=== PATIENT | male | born 1940 | race Caucasian/White ===

== ENCOUNTER → 2023-08-26 11:27 | Outpatient (REF) | payer OTHER, SELFPAY | LOC: HWRAD 11:27 | PROVIDERS: ATTENDING PHYSICIAN Internal Medicine Geriatric Medicine | DX: U07.1 COVID-19 (principal); R05.2 Subacute cough | CPT/HCPCS: 71250 ==

== ENCOUNTER → 2023-12-22 11:17 | Outpatient (REF) | payer OTHER, SELFPAY | LOC: DHCBC/DCA 11:17 | PROVIDERS: ATTENDING PHYSICIAN Internal Medicine Cardiovascular Disease; FAMILY PHYSICIAN Internal Medicine Geriatric Medicine | DX: I48.0 Paroxysmal atrial fibrillation (principal); R06.02 Shortness of breath; I10 Essential (primary) hypertension; I70.0 Atherosclerosis of aorta | CPT/HCPCS: 71046; 78452; 93017; A9500; J2785 ==

== ENCOUNTER → 2023-12-30 13:53 | Outpatient (REF) | payer OTHER, SELFPAY | LOC: HWRCS 13:53 | PROVIDERS: ATTENDING PHYSICIAN Internal Medicine Cardiovascular Disease; FAMILY PHYSICIAN Internal Medicine Geriatric Medicine | DX: I48.0 Paroxysmal atrial fibrillation (principal); R06.02 Shortness of breath; I10 Essential (primary) hypertension; I70.0 Atherosclerosis of aorta | CPT/HCPCS: 93306 ==

== ENCOUNTER → 2024-01-04 10:30 | Outpatient (REF) | payer OTHER, SELFPAY | LOC: MRI 3T 10:30 | PROVIDERS: ATTENDING PHYSICIAN Psychiatry & Neurology Neurology; FAMILY PHYSICIAN Internal Medicine Geriatric Medicine | DX: I63.89 Other cerebral infarction (principal) | CPT/HCPCS: 70544; 70547; 70551 ==

== ENCOUNTER 2024-01-20 12:39 | Emergency (ER) | payer OTHER, SELFPAY ==
[2024-01-20 12:40] VITALS: BP 137/73
--- NOTE | 2024-01-20 14:56 | ED.GENMED ---
History of Present Illness
<CB Bradshaw - Last Filed: 01/20/24 16:29>
General
Chief Complaint: Breathing Problem
Source: patient
Exam Limitations: none
Time Seen by Provider: 01/20/24 14:41
Nursing documentation reviewed up to this point in time: agreed with
History of Present Illness
History of Present Illness:
Patient is an 83-year-old male with history of A-fib hypertension hyperlipidemia stroke recent diagnosis of brain aneurysms(scheduled to see [place] [facility] in February) presents to the ER for evaluation of shortness of breath. Patient has been short
of breath for the past 6 to 8 weeks. He denies any lower extremity swelling. Denies any chest pain shortness of breath recent illness fever chills.
Patient denies any abdominal pain. reports that patient recently had blood in his urine and was seen by urologist on Wednesday urine was found to be negative for infection. She reports urine seems to be getting a little darker again.
Patient is followed by Dr. Osorio who did some studies for shortness of breath and did not find any cause.
Echo was done December 29 which showed normal LV size LV ejection fraction 55-60% trace aortic regurg trace tricuspid regurg no change from 2021
Past History
<CB Bradshaw - Last Filed: 01/20/24 16:29>
Past History
ED Past Medical History: Arrthythmia (Afib/Flutter), Cancer (skin cancer), CVA (ICH in 2017 and ICH in 02/2019 after fall, left sided weakness), HTN, Hypercholesterolemia, NIDDM and Other (ZACHARY, Restless leg syndrome. UTi, Vertigo, Skin CA, )
ED Past Surgical History: Appendectomy, Bowel resection (for Pre Cancerious) and Other (bowel resection for polyp)
Social History
Tobacco: Former smoker
Alcohol: None
Drug: None
Personal:
Living: with family
Employment: Retired
Family History
Family History: Other (Reviewed and Noncontributory)
Review of Systems
<CB Bradshaw - Last Filed: 01/20/24 16:29>
Review of Systems
Allergies reviewed?: Yes
All Other Systems: ROS reviewed and negative except as documented in HPI and ROS
Constitutional: Reports no symptoms; Denies fever, fatigue or chills
EENT: Reports no symptoms
Respiratory: Reports trouble breathing
Cardiac: Reports no symptoms
ABD/GI: Reports no symptoms
: Reports no symptoms
Musculoskeletal: Reports no symptoms
Skin: Reports no symptoms
Neurological: Reports no symptoms
Psychiatric: Reports no symptoms
Phy Exam
<CB Bradshaw - Last Filed: 01/20/24 16:29>
General Physical Exam
General Presentation: no apparent distress
General age: appears stated age
General Skin: warm and dry
General Habitus: normal
General Mental: alert
General Hydration: appears well hydrated
Cardiovascular Exam
Cardiovascular Exam: regular rate/rhythm, no murmur and normal peripheral pulses
Pulmonary Exam
Pulmonary Exam: lungs clear and no respiratory distress
Neurological Exam
Neurological Exam: alert and oriented x3
Musculoskeletal Exam
Musculoskeletal Exam: full ROM
Skin Exam
Skin Exam: normal color and warm/dry
Psychiatric Exam
Psychiatric Exam: normal mood/affect
Scores
<CB Bradshaw - Last Filed: 01/20/24 16:29>
Heart Failure Risk
Heart Failure Risk Score: Not Applicable
Course
<CB Bradshaw - Last Filed: 01/20/24 16:29>
Orders/Labs/Results
Orders:
Orders
01/20/24 12:44
Electrocardiogram (*1) Urgent
Reason for Study: Shortness of Breath
EKG- Treatment ONCE
01/20/24 14:43
Complete Blood Count/With Diff Urgent
Comprehensive Metabolic Panel Urgent
NT-proBNP Urgent
Comment: ADD ON
PTT Urgent
Prothrombin Time Urgent
Troponin I Urgent
01/20/24 14:57
CT Chest Pe Study Urgent
Comment:
Reason For Exam: sob hx of afib
01/20/24 14:58
Add On- LAB Urgent
Tests Added?: cardiac BNP
01/20/24 18:11
Add On- LAB Urgent
Tests Added?: tsh free t4, lyme progressive
Abnormal Lab Results
01/20/24
14:43
RBC 4.28 L 10^6/uL
(4.70-6.10)
MCV 95.3 H fL
(80.0-94.0)
MCH 32.2 H pg
(27.0-31.0)
Monocytes % 9.9 H %
(1.7-9.3)
PT 16.5 H Sec
(11.4-14.6)
APTT 44.0 H Sec
(23.4-35.0)
BUN 24 H mg/dl
(9-20)
Glucose 122 H mg/dl
(70-99)
01/20/24 14:43
01/20/24 14:43
Vital Signs
Initial and Last Documented VS:
Initial Vital Signs
Temp Pulse Resp BP Pulse Ox
97.8 F 86 20 137/73 99
01/20/24 12:40 01/20/24 12:40 01/20/24 12:40 01/20/24 12:40 01/20/24 12:40
Last Documented Vital Signs
Temp Pulse Resp BP Pulse Ox
97.8 F 77 21 126/66 95
01/20/24 12:40 01/20/24 17:30 01/20/24 17:30 01/20/24 16:00 01/20/24 16:45
<Kingsley Romero Jr., PA-C - Last Filed: 01/20/24 18:14>
Orders/Labs/Results
Orders:
Orders
01/20/24 12:44
Electrocardiogram (*1) Urgent
Reason for Study: Shortness of Breath
EKG- Treatment ONCE
01/20/24 14:43
Complete Blood Count/With Diff Urgent
Comprehensive Metabolic Panel Urgent
NT-proBNP Urgent
Comment: ADD ON
PTT Urgent
Prothrombin Time Urgent
Troponin I Urgent
01/20/24 14:57
CT Chest Pe Study Urgent
Comment:
Reason For Exam: sob hx of afib
01/20/24 14:58
Add On- LAB Urgent
Tests Added?: cardiac BNP
01/20/24 18:11
Add On- LAB Urgent
Tests Added?: tsh free t4, lyme progressive
Abnormal Lab Results
01/20/24
14:43
RBC 4.28 L 10^6/uL
(4.70-6.10)
MCV 95.3 H fL
(80.0-94.0)
MCH 32.2 H pg
(27.0-31.0)
Monocytes % 9.9 H %
(1.7-9.3)
PT 16.5 H Sec
(11.4-14.6)
APTT 44.0 H Sec
(23.4-35.0)
BUN 24 H mg/dl
(9-20)
Glucose 122 H mg/dl
(70-99)
01/20/24 14:43
01/20/24 14:43
Vital Signs
Initial and Last Documented VS:
Initial Vital Signs
Temp Pulse Resp BP Pulse Ox
97.8 F 86 20 137/73 99
01/20/24 12:40 01/20/24 12:40 01/20/24 12:40 01/20/24 12:40 01/20/24 12:40
Last Documented Vital Signs
Temp Pulse Resp BP Pulse Ox
97.8 F 77 21 126/66 95
01/20/24 12:40 01/20/24 17:30 01/20/24 17:30 01/20/24 16:00 01/20/24 16:45
<CB Bradshaw - Last Filed: 01/20/24 16:29>
MDM/Problems Addressed
MDM/Problems Addressed:
Patient is an 83-year-old male with history of A-fib hypertension hyperlipidemia stroke presents to the ER for evaluation of shortness of breath. Patient has a breath for the past 6 to 8 weeks. He denies any chest pain. Shortness of breath seems
to be worse with exertion but also at rest. He denies any recent illness fever chills.
Patient is afebrile not hypoxic normal white count stable hemoglobin 13.8. BUN minimally elevated creatinine normal. Troponin normal.
Patient with negative cardiac troponin, no less than 20 cardiac BNP.
Patient ambulated here with a cane however was very short of breath pulse ox 92%. CAT scan pending at this time however patient may require admission for shortness of breath. 1630:Care of pt at this time transferred To Ed TING Romero.
<Kingsley oRmero Jr., PA-C - Last Filed: 01/20/24 18:14>
MDM/Problems Addressed
MDM/Problems Addressed:
Patient is an 83-year-old male with history of A-fib hypertension hyperlipidemia stroke presents to the ER for evaluation of shortness of breath. Patient has a breath for the past 6 to 8 weeks. He denies any chest pain. Shortness of breath seems
to be worse with exertion but also at rest. He denies any recent illness fever chills.
Patient is afebrile not hypoxic normal white count stable hemoglobin 13.8. BUN minimally elevated creatinine normal. Troponin normal.
Patient with negative cardiac troponin, no less than 20 cardiac BNP.
Patient ambulated here with a cane however was very short of breath pulse ox 92%. CAT scan pending at this time however patient may require admission for shortness of breath. 1630:Care of pt at this time transferred To Ed Nick, PAC.
Ed Romero//patient was reassessed CT scan without emergent findings labs unremarkable. Patient claims that he was feeling better here he was walked did not show significant shortness of breath when walking was able to ambulate at least 20 to 30
feet without difficulty. Patient did not require any assistance. Was offered to him considering significant symptoms to be admitted he opted to go home strict return precautions were discussed and he will follow-up closely with his quality eng
and primary care doctor.
<CB Bradshaw - Last Filed: 01/20/24 16:29>
*Pulse Oximetry
Patient hypoxic: no
*Critical Care Note
Total Time (30-74mins, 75-104mins- exclusive of procedures): Not Applicable
Data Reviewed
Review of Other/Old Records Reveals: Other (Echo from December 30, 2023)
ED Attending Note
<CB Bradshaw - Last Filed: 01/20/24 16:29>
-
Portions of this chart may have been created with voice recognition software.� Occasional wrong word or��sound alike� substitutions may have occurred due to the inherent limitations of voice recognition software.
Discharge Plan
Departure
Patient Disposition: Home (Routine Discharge)
Date of Disposition: 01/20/24
Time of Disposition: 18:11
Patient with high blood pressure during this ER visit?: No
Condition: Good
Covid-19: Not Applicable
Discharge Problem:
Fatigue, Shortness of breath
Instructions: Shortness of Breath (Dyspnea) (DC)
Prescriptions:
No Action
cholecalciferol (vitamin D3) 1,000 UNITS tablet
2,000 units PO DAILY
multivitamin with folic acid [Tab-A-Mushtaq] 1 TABLET tablet
1 tab PO DAILY
atorvastatin 20 MG tablet
20 mg PO HS
clonazepam 1 MG tablet
1 mg PO HS
Patient Comments:
01/15/2021: last filled 11/24/20, 90 tabs for 90 days from [facility]
hydrochlorothiazide 25 MG tablet
25 mg PO DAILY
ipratropium bromide 1 SPRAY spray,non-aerosol
2 spray intranasal TID
fluoxetine 20 MG capsule
20 mg PO DAILY
coenzyme [id number] 1 CAP capsule
1 cap PO BID
melatonin 5 MG tablet
10 mg PO HS
dabigatran etexilate [Pradaxa] 150 MG capsule
150 mg PO BID
cyanocobalamin (vitamin B-12) 1,000 MCG tablet
1,000 mcg PO DAILY Qty: 30 0RF
amlodipine 10 MG tablet
10 mg PO DAILY Qty: 30 0RF
finasteride 5 MG tablet
5 mg PO DAILY Qty: 30 0RF
Referrals:
Robin Telles MD [Family Provider] -
Grayson Osorio MD [Active] - Follow up in 5-7 days
Activity Restrictions/Additional Instructions:
You came to emergency department today with concerns of shortness of breath. Here you had a normal chest CT normal labs unchanged EKG. This is reassuring please follow closely with as an outpatient. Return to the emergency department for any
worsening, new or concerning symptoms.
Interventions
Interventions:
*Risk Screen - Suicide Last Done: 01/20/24 15:24
*General Assessment Last Done: 01/20/24 12:40
*Neglect/Abuse Screening Last Done: 01/20/24 15:24
ED- Fall Risk Assessment Last Done: 01/20/24 15:23
*ED COVID-19 Vaccine History Last Done: 01/20/24 12:40
ED- Cardiac Assessment Last Done: 01/20/24 15:23
ED- Pulmonary Assessment Last Done: 01/20/24 15:23
Discharge Date and Time
Print Language: IVORIAN
[2024-01-20 14:58] LABS: % Basophils 0.5 % (0-2); % Eosinophils 1.6 % (0-6); % Immature Granulocytes 0.4 % (0-0.5); % Lymphocytes 45.1 % (20.5-51.1); % Monocytes 9.9 % (1.7-9.3); % Neutrophils 42.5 % (42.2-75.2); Absolute Eosinophils 0.1 10^3/uL (0-0.7); Absolute Lymphocytes 2.5 10^3/uL (1.2-3.4); Absolute Monocytes 0.5 10^3/uL (0.1-0.6); Absolute Neutrophils 2.3 10^3/uL (1.4-6.5); Hematocrit 40.8 % (39.0-52.0); Hemoglobin 13.8 g/dL (13.0-18.0); Mean Corp Hgb Conc. 33.8 g/dL (33.0-37.0); Mean Corpuscular Hgb 32.2 pg (27.0-31.0); Mean Corpuscular Volume 95.3 fL (80.0-94.0); Mean Platelet Volume 9.9 fL (7.4-10.4); Nucleated Red Blood Cells % 0 % (-); Platelet Count 220 10^3/uL (130-400); Red Blood Cell Count 4.28 10^6/uL (4.70-6.10); Red Cell Dist. Width 12.3 % (11.5-14.5); White Blood Cell Count 5.5 10^3/uL (4.8-10.8)
[2024-01-20 15:00] VITALS: BP 123/69
[2024-01-20 15:03] LABS: INR 1.32; PT 16.5 Sec (11.4-14.6)
[2024-01-20 15:12] LABS: ALT (SGPT) 35 U/L (0-50); AST (SGOT) 30 U/L (17-59); Albumin 4.4 g/dl (3.5-5.0); Alkaline Phosphatase 61 U/L (38-126); Blood Urea Nitrogen 24 mg/dl (9-20); Calcium 9.6 mg/dl (8.4-10.2); Carbon Dioxide 25 mmol/L (22-30); Chloride 102 mmol/L (98-107); Glucose 122 mg/dl (70-99); Potassium 4.4 mmol/L (3.5-5.1); Sodium 137 mmol/L (135-145); Total Bilirubin 0.5 mg/dl (0.2-1.3); Total Protein 7.1 g/dl (6.3-8.2); eGFR > 60.00
[2024-01-20 15:16] LABS: Troponin I < 0.012 ng/ml
[2024-01-20 15:41] LABS: NT-proBNP < 20.0 pg/ml
[2024-01-20 16:00] VITALS: BP 126/66
[2024-01-20 18:37] VITALS: BP 135/78
== END 2024-01-20 18:38 | disposition home or self-care (01) ==
LOC: EMR 12:39
PROVIDERS: EMERGENCY PHYSICIAN Emergency Medicine; FAMILY PHYSICIAN Internal Medicine Geriatric Medicine
DX: R06.02 Shortness of breath (principal); R53.83 Other fatigue; I48.91 Unspecified atrial fibrillation; I10 Essential (primary) hypertension; E78.00 Pure hypercholesterolemia, unspecified; I67.1 Cerebral aneurysm, nonruptured; E11.9 Type 2 diabetes mellitus without complications; I07.1 Rheumatic tricuspid insufficiency; G47.33 Obstructive sleep apnea (adult) (pediatric); I48.92 Unspecified atrial flutter; G25.81 Restless legs syndrome; I69.354 Hemiplegia and hemiparesis following cerebral infarction affecting left non-dominant side; Z98.0 Intestinal bypass and anastomosis status; Z85.828 Personal history of other malignant neoplasm of skin; Z87.440 Personal history of urinary (tract) infections; Z87.891 Personal history of nicotine dependence
CPT/HCPCS: 99285; 71275; 80053; 83880; 84443; 84484; 85025; 85610; 85730; 86618; 93005; Q9967

== ENCOUNTER → 2024-08-17 11:25 | Outpatient (REF) | payer OTHER, SELFPAY | LOC: HWRAD 11:25 | PROVIDERS: ATTENDING PHYSICIAN Internal Medicine Geriatric Medicine | DX: R05.3 Chronic cough (principal); R09.89 Other specified symptoms and signs involving the circulatory and respiratory systems | CPT/HCPCS: 71250 ==

== ENCOUNTER → 2024-08-25 09:50 | Outpatient (REF) | payer OTHER, SELFPAY | LOC: RST 09:50 | PROVIDERS: ATTENDING PHYSICIAN Internal Medicine Geriatric Medicine | DX: R05.3 Chronic cough (principal); R09.89 Other specified symptoms and signs involving the circulatory and respiratory systems | CPT/HCPCS: 74230; 92611 ==

== ENCOUNTER → 2025-04-10 11:42 | Outpatient (REF) | payer OTHER, SELFPAY | LOC: EMG 11:42 | PROVIDERS: ATTENDING PHYSICIAN Psychiatry & Neurology Neurology; FAMILY PHYSICIAN Internal Medicine Geriatric Medicine | DX: M54.12 Radiculopathy, cervical region (principal); R20.0 Anesthesia of skin | CPT/HCPCS: 95886; 95909 ==